=== PATIENT | male | born 1990 | race Caucasian/White ===

== ENCOUNTER 2019-11-04 00:54 | Emergency (ER) | payer BC ==
[~2019-11-04] VITALS: Ht 170.2 cm; Wt 90.7 kg
[2019-11-04 00:57] VITALS: Ht 170.2 cm; Wt 90.7 kg
[2019-11-04 02:15] VITALS: BP 127/71
== END 2019-11-04 02:15 | disposition home or self-care (01) ==
LOC: ED 00:54
DX: S51.812A Laceration without foreign body of left forearm, initial encounter (principal); W22.8XXA Striking against or struck by other objects, initial encounter; Y93.89 Activity, other specified; Y92.89 Other specified places as the place of occurrence of the external cause; Y99.8 Other external cause status
CPT/HCPCS: 90715; J2001

== ENCOUNTER 2019-11-09 15:35 | Emergency (ER) | payer BC ==
[~2019-11-09] VITALS: Ht 167.6 cm; Wt 92.5 kg
[2019-11-09 15:46] VITALS: BP 161/105; Ht 167.6 cm; Wt 92.5 kg
== END 2019-11-09 16:10 | disposition home or self-care (01) ==
LOC: ED 15:35
DX: S51.812D Laceration without foreign body of left forearm, subsequent encounter (principal); X58.XXXD Exposure to other specified factors, subsequent encounter

== ENCOUNTER 2019-11-13 10:42 | Emergency (ER) | payer BC ==
[~2019-11-13] VITALS: Ht 177.8 cm; Wt 92.5 kg
[2019-11-13 10:56] VITALS: BP 136/89; Ht 177.8 cm; Wt 92.5 kg
== END 2019-11-13 12:35 | disposition home or self-care (01) ==
LOC: ED 10:42
DX: S51.812D Laceration without foreign body of left forearm, subsequent encounter (principal); F12.10 Cannabis abuse, uncomplicated; X58.XXXD Exposure to other specified factors, subsequent encounter